=== PATIENT | female | born 1965 | race Caucasian/White ===

== ENCOUNTER 2021-05-15 17:02 | Emergency (ER) | payer BC ==
[2021-05-15] MEDS ORDERED: Boostrix 0.5 ML (Tdap) VIAL ONE (17:28)
== END 2021-05-15 17:34 | disposition home or self-care (01) ==
LOC: NAV ERS 17:02
DX: S61.101A Unspecified open wound of right thumb with damage to nail, initial encounter (principal); W26.0XXA Contact with knife, initial encounter; Z23 Encounter for immunization
CPT/HCPCS: 90471; 90715; 99283